=== PATIENT | female | born 1980 | race Caucasian/White ===

== ENCOUNTER → 2017-09-21 22:10 | Outpatient (CLI) | payer BC, SELFPAY ==
[2017-09-25 08:05] LABS: HPV APTIMA, High Risk Negative (Negative)
== END ==
PROVIDERS: Visit Provider Nurse Practitioner Women's Health
DX: Z12.4 Encounter for screening for malignant neoplasm of cervix (principal)
CPT/HCPCS: 88175; G0145

== ENCOUNTER → 2024-07-25 | Outpatient (CLI) | payer BC, SELFPAY ==
--- NOTE | 2024-07-25 13:27 | BI_ITS ---
MAMMOGRAPHY - BILATERAL SCREENING REASON FOR EXAM: Female, 44 years old. Routine annual screening examination. PERTINENT HISTORY: Non-contributory. Remote bilateral breast implants as well as left excisional breast biopsy. TECHNIQUE: Digital bilateral breast katherine (3D mammographic acquisition) in the CC and MLO projections. 2-D mediolateral oblique (MLO) and craniocaudad (CC) views of both breasts were obtained. CAD: Full Field Digital Mammography with Computer Added Detection was performed. COMPARISON: None. Baseline examination. FINDINGS: Breast Composition: The breasts are extremely dense, which lowers the sensitivity of mammography. There are no dominant masses or suspicious calcifications. Bilateral breast implants. No other significant abnormalities are identified. BI/SCRN MAMM (CAD)W/KATHERINE BILAT IMPRESSION: Negative screening mammogram. Yearly followup mammogram recommended. (A) ASSESSMENT CATEGORY: BIRADS Category 2: Benign. A letter regarding these results will be sent to the patient by the facility within 30 days. Approximately 10% of breast cancers are not detected by mammography. A normal mammogram should not delay biopsy of a clinically suspicious abnormality. [id number] Electronically Signed: Pacheco Gardner MD at 14:08 EST ,
== END | disposition home or self-care (01) ==
LOC: OPBI 13:25
PROVIDERS: PCP Nurse Practitioner Family; Referring Provider Nurse Practitioner Family; Visit Provider Nurse Practitioner Family
DX: Z12.31 Encounter for screening mammogram for malignant neoplasm of breast (principal)

== ENCOUNTER → 2024-12-28 | Outpatient (CLI) | payer BC, SELFPAY ==
[2025-01-02 15:09] LABS: HPV APTIMA, High Risk Negative (Negative)
== END | disposition home or self-care (01) ==
LOC: LABSPEC 16:24
PROVIDERS: PCP Nurse Practitioner Family; Referring Provider Nurse Practitioner Family; Visit Provider Nurse Practitioner Family
DX: Z12.4 Encounter for screening for malignant neoplasm of cervix (principal)
CPT/HCPCS: 87624; 88175; G0145

== ENCOUNTER → 2025-01-03 | Outpatient (CLI) | payer BC, SELFPAY ==
--- NOTE | 2025-01-03 15:14 | US_ITS ---
PROCEDURE: PELVIC W/ TRANSVAGINAL 01/03/2025 REASON FOR EXAM: PELVIC PAIN, ENLARGED UTERUS TECHNIQUE: PELVIC W/ TRANSVAGINAL COMPARISON: None. FINDINGS: Measurements: Uterus: 9.8 x 4.6 x 6.5 cm for volume of 151.7 mL Endometrial Thickness: 0.5 cm Right Ovary: 3.0 x 1.9 x 2.6 cm for volume of 7.6 mL Left Ovary: 2.8 x 1.6 x 2.1 cm for volume of 4.9 mL Uterus: Anteverted. There are hypoechoic lesions at the posterior uterine fundus measuring 1.3 x 0.9 x 1.1 cm, and at the right aspect of the uterus measuring 0.8 x 0.9 by 1.2 cm. Nabothian cysts at the cervix. Endometrium: Normal echotexture. Right ovary: Normal size and echotexture. Left ovary: Normal size and echotexture. Other adnexal findings: None. Cul-de-sac: No free intraperitoneal fluid identified. DOPPLER: Color Doppler: Normal color flow doppler signal at both ovaries. Spectral Doppler: Normal arterial inflow and venous outflow signal at both ovaries. US/Pelvic w/ Transvaginal IMPRESSION: Leiomyomas at the uterine fundus measuring up to 1.3 cm in size. Reading Location: [id number]
== END | disposition home or self-care (01) ==
LOC: US 15:12
PROVIDERS: PCP Nurse Practitioner Family; Referring Provider Nurse Practitioner Family; Visit Provider Nurse Practitioner Family
DX: R10.2 Pelvic and perineal pain (principal); N85.2 Hypertrophy of uterus
CPT/HCPCS: 76830; 76856